=== PATIENT | male | born 1985 | race Caucasian/White ===

== ENCOUNTER → 2024-01-12 15:07 | Outpatient (REF) | payer BC, SELFPAY | LOC: RAD 15:07 | PROVIDERS: FAMILY PHYSICIAN Family Medicine | DX: M25.551 Pain in right hip (principal); M25.522 Pain in left elbow | CPT/HCPCS: 73523 ==

== ENCOUNTER → 2024-07-21 18:14 | Outpatient (REF) | payer BC, SELFPAY | LOC: UCDH 18:14 | PROVIDERS: ATTENDING PHYSICIAN Emergency Medicine; FAMILY PHYSICIAN Family Medicine | DX: J40 Bronchitis, not specified as acute or chronic (principal); J98.9 Respiratory disorder, unspecified | CPT/HCPCS: 71046 ==

== ENCOUNTER → 2024-08-16 09:46 | Outpatient (REF) | payer BC, SELFPAY | LOC: HWRAD 09:46 | PROVIDERS: ATTENDING PHYSICIAN Family Medicine | DX: R91.1 Solitary pulmonary nodule (principal) | CPT/HCPCS: 71260; Q9967 ==